=== PATIENT | male | born 1955 | race Caucasian/White ===

== ENCOUNTER 2016-03-27 09:03 | Outpatient (CLI) | payer OTHER ==
[2015-05-14 15:40] VITALS: BP 143/75
[2016-03-27 09:27] LABS: BASOPHILS % 0.2 (0.0-1.5); EOSINOPHILS % 2.3 % (0.0-6.8); LYMPHOCYTES # 1.5 # k/uL (0.6-4.0); MEAN CORPUSCULAR HEMOGLOBIN 32.2 pg (28.0-34.0); MONOCYTES # 0.5 # k/uL (0.0-0.9); MONOCYTES % 5.5 % (0.0-11.0); NEUTROPHILS # 6.6 # k/uL (1.4-7.7)
[2016-03-27 09:42] LABS: eGFR (African) > 60; eGFR (Non-African) > 60
== END 2016-03-27 09:04 ==
LOC: LAB 09:03
PROVIDERS: ATTEND Family Medicine
DX: R61 Generalized hyperhidrosis (principal); E11.9 Type 2 diabetes mellitus without complications; Z00.00 Encounter for general adult medical examination without abnormal findings
CPT/HCPCS: 36415; 80053; 80061; 82043; 83036; 85025

== ENCOUNTER 2016-07-31 08:40 | Outpatient (CLI) | payer OTHER ==
[2015-05-14 15:40] VITALS: BP 143/75
[2016-07-31 08:57] LABS: BASOPHILS % 0.5 (0.0-1.5); EOSINOPHILS % 4.1 % (0.0-6.8); MEAN CORPUSCULAR HEMOGLOBIN 32.7 pg (28.0-34.0); MEAN CORPUSCULAR VOLUME 95.7 fl (80.0-100.0); MONOCYTES % 7.1 % (0.0-11.0); NEUTROPHILS # 3.5 # k/uL (1.4-7.7)
[2016-07-31 09:17] LABS: eGFR (African) > 60; eGFR (Non-African) > 60
== END 2016-07-31 08:42 ==
LOC: LAB 08:40
PROVIDERS: ATTEND Family Medicine
DX: E11.9 Type 2 diabetes mellitus without complications (principal); R61 Generalized hyperhidrosis
CPT/HCPCS: 36415; 80048; 83036; 85025

== ENCOUNTER 2016-12-24 09:38 | Outpatient (CLI) | payer OTHER ==
[2015-05-14 15:40] VITALS: BP 143/75
[2016-12-24 09:52] LABS: BASOPHILS % 0.7 (0.0-1.5); EOSINOPHILS % 3.7 % (0.0-6.8); MEAN CORPUSCULAR VOLUME 93.6 fl (80.0-100.0); MONOCYTES % 7.9 % (0.0-11.0); NEUTROPHILS # 4.5 # k/uL (1.4-7.7)
[2016-12-24 10:36] LABS: eGFR (African) > 60; eGFR (Non-African) > 60
--- NOTE | 2016-12-24 11:56 | Diagnostic Imaging Report ---
FAMILIA ABBOTT [facility] [address] [facility].[address] [address] Report Submission Date: Dec 24, 2016 10:52:40 AM CDT Patient Study Name: MERT CARRERA Date: Dec 24, 2016 9:50:30 AM CDT Modality Type: CR Gender: M Description: ABDOMEN : 55 Institution: [facility] Physician: FAMILIA ABBOTT Examination: Obstruction series History: Abdominal discomfort Findings: 3 views obtained of the abdomen. No abnormal dilation of the large or small bowel. Air and stool throughout the large bowel. No suspicious calcification projecting over the renal fossa or the lower pelvic region. Pelvic phleboliths. Osseous structures are appropriate for age. Impression: No obstruction. No suspicious calcifications by plain film sensitivity. Electronically signed on Dec 24, 2016 10:52:40 AM CDT by: Baldomero MADRIGAL
--- NOTE | 2016-12-24 13:35 | Diagnostic Imaging Report ---
FAMILIA ABBOTT [facility] [address] [facility].[address] [address] Report Submission Date: Dec 24, 2016 12:45:44 PM CDT Patient Study Name: MERT CARRERA Date: Dec 24, 2016 11:56:28 AM CDT Modality Type: CT\SR Gender: M Description: CT ABD & PELVIS W/ CON : 55 Institution: [facility] Physician: FAMILIA ABBOTT Examination: CT Abdomen/pelvis History: Generalized abdominal discomfort Comparison exams: Plain film abdomen series dated 24 December 2016 Technique: CT Abdomen/pelvis with IV protocol. Findings: Liver demonstrates diffuse low attenuation. No central lesion. Spleen , pancreas, kidneys and gallbladder are without gross irregularity. No abnormal enhancement. Mild adrenal hyperplasia. No gallstone. 2 mm mid left renal calcification. Few cortical cysts. No abnormal ureteric dilation in their course through the abdomen and pelvis. Bladder margin within normal limits. Abdominal aorta demonstrates mild atherosclerotic disease. No aneurysmal dilation. Cardiac silhouette is not enlarged. No pericardial effusion. Few mildly prominent loops of small bowel with thickened mucosa. Few scattered air-fluid levels. Stool within the large bowel limiting sensitivity. No mesenteric inflammatory changes or free fluid. Appendix identified and is without inflammatory changes. Osseous structures demonstrate degenerative changes. Lung bases demonstrate parenchymal scarring. No effusion. Impression: Mildly prominent loops of small bowel with air-fluid levels suggesting gastroenteritis. No obstruction. No abdominal mass or acute inflammatory process. No gallstone. Left nephrolithiasis. No abnormal ureteric dilation. Electronically signed on Dec 24, 2016 12:45:44 PM CDT by: Baldomero MADRIGAL
== END 2016-12-24 09:40 ==
LOC: RAD 09:38
PROVIDERS: ATTEND Family Medicine
DX: R10.84 Generalized abdominal pain (principal)
CPT/HCPCS: 36415; 74000; 74177; 80053; 83036; 83690; 85025; Q9966; A9698

== ENCOUNTER 2017-08-27 08:41 | Outpatient (CLI) | payer OTHER ==
[2015-05-14 15:40] VITALS: BP 143/75
[2017-08-27 09:23] LABS: eGFR (African) > 60; eGFR (Non-African) > 60
== END 2017-08-27 08:42 ==
LOC: LAB 08:41
PROVIDERS: ATTEND Family Medicine
DX: E11.9 Type 2 diabetes mellitus without complications (principal)
CPT/HCPCS: 36415; 80053; 80061; 83036

== ENCOUNTER 2017-12-04 13:57 | Outpatient (CLI) | payer OTHER ==
[2015-05-14 15:40] VITALS: BP 143/75
== END 2017-12-04 14:00 ==
LOC: LAB 13:57
PROVIDERS: ATTEND Family Medicine
DX: E11.9 Type 2 diabetes mellitus without complications (principal)
CPT/HCPCS: 36415; 83036

== ENCOUNTER 2017-12-09 10:26 | Outpatient (CLI) | payer OTHER ==
[2015-05-14 15:40] VITALS: BP 143/75
--- NOTE | 2017-12-09 12:03 | Diagnostic Imaging Report ---
BERONICA COATES [facility] [address] [address] Report Submission Date: Dec 09, 2017 10:54:01 AM CDT Patient Study Name: MERT CARRERA Date: Dec 09, 2017 10:29:42 AM CDT Modality Type: DX Gender: M Description: LOWER EXTREMITY : 55 Institution: [facility] Physician: BERONICA COATES Left knee History: Pain AP, lateral and sunrise views of the left knee demonstrate no osseous abnormality. There is no joint effusion. There are no significant degenerative findings. Impression: No osseous abnormality. Electronically signed on Dec 09, 2017 10:54:01 AM CDT by: Sarah MADRIGAL
== END 2017-12-09 10:28 ==
LOC: RAD 10:26
PROVIDERS: ATTEND Physician Assistant
DX: M25.562 Pain in left knee (principal)
CPT/HCPCS: 73562

== ENCOUNTER 2017-12-20 19:12 | Emergency (ER) | payer OTHER ==
[2017-12-20 19:38] VITALS: BP 133/64
--- NOTE | 2017-12-20 19:58 | ED Physician Documentation ---
General Adult - HISTORIAN Historian: patient - HPI Stated Complaint: laceration lt hand Chief Complaint: Laceration/Recheck/Suture Additional Information: Patient presents to ED after cutting his left hand with a knife while trying to cut frozen meat. He states it is a deep cut and it bleed profusely at home. He was able to put a compression bandage on the wound and bleeding is controlled. While in the ED the compression bandage was removed with arterial spurting evident. Compression bandage was placed and once again bleeding was controlled. Patient is able to move all fingers and thumb on the left hand. Capillary re fill is good on all fingers. Discussion with patient on the benefits of the wound being evaluated by a surgeon to visualize possible cut tendons and tie off arterial bleeding. Patient is willing to go to [facility], however, refused ambulance transfer. He will have is transport him by private vehicle. Onset: hours (1) Timing: still present Severity: moderate, severe - ROS CONST: no problems EYES/ENT: none CVS/RESP: none GI/: none MS/SKIN/LYMPH: none NEURO/PSYCH: denies: headache - PAST HX Past History: none Other History: none Surgeries/Procedures: other (hernia repair) Immunizations: tetanus Allergies/Adverse Reactions: Allergies Allergy/AdvReac Type Severity Reaction Status Date / Time No Known Drug Allergies Allergy Verified 12/20/17 19:50 - SOCIAL HX Smoking History: cigarettes, greater than 1 pack/day Alcohol Use: none Drug Use: none - FAMILY HX Family History: No - VITAL SIGNS Vital Signs: Vital Signs Temp Pulse Resp BP Pulse Ox 98.4 F 86 16 133/64 97 12/20/17 19:13 12/20/17 19:13 12/20/17 19:13 12/20/17 19:13 12/20/17 19:13 - REVIEWED ASSESSMENTS Nursing Assessment Reviewed: Yes Vitals Reviewed: Yes Progress - Results/Orders Results/Orders: [address] Walter, orthopedic surgeon. He will see patient in the ED at [facility]. Patient has refused ambulance transport, his with drive him there. General Adult Physical Exam - PHYSICAL EXAM GENERAL APPEARANCE: no distress EENT: ERICA NECK: normal inspection RESPIRATORY: no resp distress, breath sounds normal CVS: reg rate & rhythm, heart sounds normal ABDOMEN: soft BACK: No: no CVA tenderness SKIN: warm/dry, other (laceration to left hand palm with arterial spurting ) EXTREMITIES: no edema NEURO: oriented X3 Discharge Clincal Impression: Laceration Referrals: Esha Dominguez MD [Primary Care Provider] - 2 Days Condition: Stable Disposition: 02 XFER SHT-TRM HOSP Decision to Admit: [id number] Date of Decison to Admit: 12/20/17 Decision Time: 20:03
== END 2017-12-20 20:20 | disposition short-term general hospital (02) ==
LOC: ED 19:12
DX: S61.412A Laceration without foreign body of left hand, initial encounter (principal); W26.8XXA Contact with other sharp object(s), not elsewhere classified, initial encounter; Y92.010 Kitchen of single-family (private) house as the place of occurrence of the external cause; Y93.G1 Activity, food preparation and clean up; Y99.9 Unspecified external cause status
CPT/HCPCS: 99283

== ENCOUNTER 2018-07-17 14:40 | Emergency (ER) | payer OTHER ==
[2018-07-17 15:01] VITALS: BP 132/87
--- NOTE | 2018-07-17 15:14 | ED Physician Documentation ---
General Adult - HISTORIAN Historian: patient - HPI Stated Complaint: laceration Chief Complaint: Suture Removal Onset: minutes Severity: moderate Further Comments: yes (63 year old male patient presents with laceration to right forearm. Cut on a piece of tin. Last tetnus 07/09/2018 - with cut to left leg. Patient reports he has been cleaning the wound twice a day with hydrogen peroxide.) - ROS CONST: no problems EYES/ENT: none CVS/RESP: none GI/: none MS/SKIN/LYMPH: none NEURO/PSYCH: denies: headache - PAST HX Past History: denies: none Other History: diabetes Type 2 Immunizations: tetanus (07/09/18) Allergies/Adverse Reactions: Allergies Allergy/AdvReac Type Severity Reaction Status Date / Time No Known Drug Allergies Allergy Verified 07/17/18 15:45 - SOCIAL HX Smoking History: cigarettes - FAMILY HX Family History: No - VITAL SIGNS Vital Signs: Vital Signs Temp Pulse Resp BP Pulse Ox 97.8 F 86 16 132/87 98 07/17/18 14:42 07/17/18 14:42 07/17/18 14:42 07/17/18 14:42 07/17/18 14:42 - REVIEWED ASSESSMENTS Nursing Assessment Reviewed: Yes Vitals Reviewed: Yes Procedures Wound Location: upper extremity (left forearm) Wound's Depth, Shape: flap Wound Explored: clean Irrigated w/ Saline (ccs): 400 Anesthesia: Lidocaine w/ Epi (with neut) Suture Size/Type: 5:0 Number of Sutures: 8 Layer Closure?: No Progress: Wound edges well approximated. Patient tolerated procedure well; reviewed discharge instructions - verbalized understanding. Progress - Progress Progress: non-viable black eschar removed from left teixeira wound. Instructed patient to stop using hydrogen peroxide on wound - verbalized understanding. ED Results Lab/Radiology - Orders Orders: ED Orders Category Date Time Status Lidocaine 1%/Epinephrine [Xylocaine 1%-EPI 1:100,000] Med 07/17/18 15:11 Discontinued 5 ml IJ NOW ONE Sodium Bicarbonate [Neut] Med 07/17/18 15:11 Discontinued 2.4 meq INJ NOW ONE General Adult Physical Exam - PHYSICAL EXAM GENERAL APPEARANCE: mild distress EENT: eye inspection normal, ERICA RESPIRATORY: no resp distress, chest non-tender, breath sounds normal CVS: reg rate & rhythm, heart sounds normal, equal pulses, no murmur, no gallop, PMI nml, no JVD, no friction rub, 24 ABDOMEN: soft, no organomegaly, normal bowel sounds, no abdominal bruit, no distension BACK: normal inspection, no CVA tenderness SKIN: warm/dry, normal color, other (left forearm - 3.5 cm flap laceration; right lower leg with 1.5 cm area of dark black eschar) NEURO: oriented X3, motor nml, sensation nml, mood/affect nml Discharge Clincal Impression: wound left teixeira Forearm laceration Qualifiers: Encounter type: initial encounter Laterality: left Qualified Code(s): S51.812A - Laceration without foreign body of left forearm, initial encounter Referrals: Esha Dominguez MD [Primary Care Provider] - 2 Days Additional Instructions: Keep the wound clean and dry until it has healed. You can wash or shower after 24 hours. Do not soak the wound in water and make sure it is dry afterwards (gently pat the area dry with a clean towel). Do not get into a swimming pool, hot tub, lugo or river until your stitches are removed. To remove your dressing, gently pull it off. If needed, you can dampen it with water then gently pull it off. Clean the laceration twice a day with hibiclens and rinse with water clean away any scabbed area Apply thin coat of antibiotic ointment after cleaning the wound. Cover with non-adherent bandage if able. If you have pain, take simple pain relief medication such as Tylenol or ibuprofen. If bandages or dressings get wet, they will need to be changed. Call your doctor for any signs of symptom of infection redness, drainage, pain. Have your stitches removed at your doctors office in 10 days. Discharged with bactroban ointment apply a thin coat twice a day. Condition: Stable Disposition: 01 HOME, SELF-CARE Decision to Admit: NO Decision Time: 15:43
[2018-07-17] MEDS: LIDOCAINE HCL 1%/EPI. (1:100,000) MDV 20ML VIAL IJ ONE (15:20)
[2018-07-17] MEDS: SODIUM BICARBONATE 2.4 MEQ/5 ML VIAL INJ ONE (15:20)
== END 2018-07-17 15:55 | disposition home or self-care (01) ==
LOC: ED 14:40
DX: S51.811D Laceration without foreign body of right forearm, subsequent encounter (principal); W26.8XXD Contact with other sharp object(s), not elsewhere classified, subsequent encounter
CPT/HCPCS: 99282

== ENCOUNTER 2018-11-12 08:19 | Outpatient (CLI) | payer OTHER ==
[2018-11-12 08:49] LABS: A1C 6.9 % (<5.7)
[2018-11-12 09:11] LABS: eGFR (Non-African) > 60
[2018-11-12 09:12] LABS: HDL 50 mg/dL (>40)
== END 2018-11-12 08:21 ==
LOC: LAB 08:19
PROVIDERS: ATTEND Family Medicine
DX: Z12.5 Encounter for screening for malignant neoplasm of prostate (principal); E11.9 Type 2 diabetes mellitus without complications
CPT/HCPCS: 36415; 80053; 80061; 82043; 83036; 84153

== ENCOUNTER 2018-11-16 10:15 | Outpatient (CLI) | payer OTHER ==
--- NOTE | 2018-11-16 11:50 | Diagnostic Imaging Report ---
FAMILIA ABBOTT [facility] [address] [address] Report Submission Date: Nov 16, 2018 10:51:20 AM CDT Patient Study Name: MERT CARRERA Date: Nov 16, 2018 10:19:16 AM CDT Modality Type: DX Gender: M Description: BILAT KNEES 1 OR 2 VIEWS : 55 Institution: [facility] Physician: FAMILIA ABBOTT Examination: Plain film knee History: LT KNEE PAIN X3 MONTHS Findings: 2 standing views of the left knee demonstrates degenerative spurring. No fracture. No dislocation. No joint effusion. No soft tissue irregularity. Impression: No acute osseous abnormality Electronically signed on Nov 16, 2018 10:51:20 AM CDT by: Baldomero MADRIGAL
--- NOTE | 2018-11-16 11:51 | Diagnostic Imaging Report ---
FAMILIA ABBOTT [facility] [address] [address] Report Submission Date: Nov 16, 2018 10:51:20 AM CDT Patient Study Name: MERT CARRERA Date: Nov 16, 2018 10:19:16 AM CDT Modality Type: DX Gender: M Description: BILAT KNEES 1 OR 2 VIEWS : 55 Institution: [facility] Physician: FAMILIA ABBOTT Examination: Plain film knee History: LT KNEE PAIN X3 MONTHS Findings: 2 standing views of the left knee demonstrates degenerative spurring. No fracture. No dislocation. No joint effusion. No soft tissue irregularity. Impression: No acute osseous abnormality Electronically signed on Nov 16, 2018 10:51:20 AM CDT by: Baldomero MADRIGAL
== END 2018-11-16 10:17 ==
LOC: LAB 10:15
PROVIDERS: ATTEND Family Medicine
DX: D69.9 Hemorrhagic condition, unspecified (principal); R41.3 Other amnesia; M25.562 Pain in left knee; G89.29 Other chronic pain
CPT/HCPCS: 36415; 73560; 84443; 85027

== ENCOUNTER 2019-01-13 11:15 | Emergency (ER) | payer OTHER ==
[2019-01-13 11:31] VITALS: BP 128/71
--- NOTE | 2019-01-13 11:37 | ED Physician Documentation ---
Multiple Trauma - HISTORIAN Historian: patient - HPI Stated Complaint: Fall Chief Complaint: Multiple Trauma Additional Information: Patient presents to ED via EMS after falling approximately 5 feet off of a ladder, landing in the yard. Patient reports landing on his left side with his arm against his chest. He complains of 10/10, sharp stabbing pain to left chest and left upper quadrant. He arrive on a back board but denies any neck and back pain. He denies hitting his head and remembers the entire fall. He is not on blood thinners. Onset: just prior to arrival Where: home Location of Pain/Injury: chest (left lateral chest ), abdomen (LUQ) Injury to Right Extremity: none Injury to Left Extremity: none Severity: severe Further Comments: no - ROS CONST: no problems NEURO: denies: dizziness EYES/ENT: none MS/SKIN/LYMPH: denies: weakness, numbness, neck pain, back pain, ankle swelling CVS/RESP: chest pain, shortness of breath GI/: denies: nausea, vomiting blood - PAST HX Past History: diabetes Type 2 Allergies/Adverse Reactions: Allergies Allergy/AdvReac Type Severity Reaction Status Date / Time No Known Drug Allergies Allergy Verified 07/17/18 15:45 Home Medications: Ambulatory Orders Medication Instructions Recorded HYDROcodone /APAP 5/325 [[place] 1 each PO Q4 PRN #15 tablet 01/13/19 5/325] Orphenadrine (Nf) [Norflex (Nf)] 100 mg PO Q12 PRN #30 tablet.er 01/13/19 - SOCIAL HX Smoking History: cigarettes Alcohol Use: none Drug Use: none - FAMILY HX Family History: none - VITAL SIGNS Vital Signs: Vital Signs Temp Pulse Resp BP Pulse Ox 87 16 128/71 93 01/13/19 13:54 01/13/19 13:54 01/13/19 13:54 01/13/19 13:54 - REVIEWED ASSESSMENTS Nursing Assessment Reviewed: Yes Vitals Reviewed: Yes ED Results Lab/Radiology - Lab Results Lab Results: Lab Results 01/13/19 11:40 Sodium 137 mmol/L mmol/L (137-145) Potassium 4.5 mmol/L mmol/L (3.5-5.1) Chloride 98 mmol/L mmol/L (98-107) Carbon Dioxide 28 mmol/L mmol/L (22-30) Anion Gap 15.5 BUN 10 mg/dL mg/dL (9-20) Creatinine 0.41 mg/dL L mg/dL (0.66-1.25) Estimated Creat Clear 248 Est GFR ( Amer) > 60 (60 - ) Est GFR (Non-Af Amer) > 60 (60 - ) Glucose 378 mg/dL H mg/dL (74-106) Calcium 9.3 mg/dL mg/dL (8.4-10.2) - Radiology Radiology Impressions: Report Submission Date: Jan 13, 2019 1:22:08 PM BUSINESS SUPPORT LIAISON Patient Study Name: MERT CARRERA Date: Jan 13, 2019 12:38:06 PM BUSINESS SUPPORT LIAISON Modality Type: CT\SR Gender: M Description: CT BRAIN W/O CONTRAST : 55 Institution: [facility] Physician: LINA REYES Examination: CT head without contrast History: Fall Comparison exam: None available Technique: Noncontrast head CT protocol. Findings: Ventricles and sulci are consistent for patient age. Cerebrocerebellar parenchyma demonstrates periventricular low attenuation consistent with small vessel disease. No evidence for parenchymal hemorrhage. No evidence for mass or mass effect. No midline shift. No extra axial fluid collections. Partial visualization of the paranasal sinuses, mastoid air cells, orbits, skull and sc alp without gross irregularity. Impression: Age related changes. No acute parenchymal process. No hemorrhage. Electronically signed on Jan 13, 2019 1:22:08 PM BUSINESS SUPPORT LIAISON by: Baldomero Mahmood Report Submission Date: Jan 13, 2019 1:28:37 PM BUSINESS SUPPORT LIAISON Patient Study Name: MERT CARRERA Date: Jan 13, 2019 12:42:00 PM BUSINESS SUPPORT LIAISON Modality Type: CT\SR Gender: M Description: CT CHEST/ABD/PEL W : 55 Institution: [facility] Physician: LINA REYES Exam: CT chest abdomen and pelvis with contrast. History: Left-sided chest pain after fall. Axial images through the chest abdomen and pelvis after IV infusion of 90 cc Omnipaque 300 is submitted along with sagittal and coronal reformatted images. The examination is compared to a study of the abdomen performed on December 24, 2016. Dependent atelectasis in infiltrates in the posterior lung summers bilaterally are noted. No pleural effusions are seen. No andrea consolidation is noted. The thoracic aorta is of normal caliber. The mainstem pulmonary artery is also normal in caliber. No significant mediastinal or axillary adenopathy is noted. Mild degenerate changes in the thoracic spine are noted. The no free intraperitoneal air is identified. The gallbladder is distended without stones. The liver, spleen and pancreas are normal attenuation and enhancement. The adrenal glands are normal configuration. The abdominal aorta is of normal caliber. No periaortic lymphadenopathy is noted. Both kidneys are normal attenuation and enhancement. No hydronephrosis is identified. The urinary bladder is markedly distended. The visualized appendix is of normal configuration. The small bowel is of normal caliber. Air and stool seen throughout the large intestine. No in flammatory changes in the mesentery are noted. Scattered diverticula in the descending colon and sigmoid colon are noted. Mild degenerate changes in the lumbar spine is noted. Impression: Dependent atelectasis and infiltrates in the posterior lung summers bilaterally are noted. No andrea consolidation or effusion is identified. No hydronephrosis. The appendix is of normal configuration. Descending colon and sigmoid diverticulosis. Nonspecific bowel gas pattern. No inflammatory changes in the mesentery or ascites is identified. Electronically signed on Jan 13, 2019 1:28:37 PM BUSINESS SUPPORT LIAISON by: Cole Butler - Orders Orders: ED Orders Category Date Time Status Incentive Spirometer 1T Care 01/13/19 13:[address] IV Lock 1T Care 01/13/19 11:[address] ABD & PELVIS W/ CON Stat Exams 01/13/[address] BRAIN W/O CONTRAST Stat Exams 01/13/[address] CHEST W/ CONTRAST Stat Exams 01/13/19 Ordered BMP [BMP] Routine Lab 01/13/19 11:40 Completed 0.9 % Sodium Chloride [Normal Saline] 1,000 ml Med 01/13/19 11:28 Discontinued IV Q1H HYDROcodone /APAP 5/325 [[place] 5/325] Med 01/13/19 13:37 Discontinued 2 each PO NOW ONE HYDROmorphone HCL/PF [Dilaudid] Med 01/13/19 11:29 Discontinued 1 mg IVP NOW ONE EKG WITH COMPARISON Stat Ther 01/13/19 Stop Req Multiple Trauma Physical Exam - Physical Exam General Appearance: no acute distress, alert, backboard BROOM MAN, backboard in ED. No: c-collar BROOM MAN Head: non-tender, no swelling, no obvious injury Neck: non-tender, painless ROM, trachea midline Eyes: ERICA, EOMI ENT: nml external inspection, no dental injury Resp/CVS: no resp. distress, heart sounds nml, splinting, decreased breath sounds (bilaterally ), other (left lateral chest wall tenderness ) Abdomen: soft, normal bowel sounds, tenderness (LUQ) Neuro/Psych: oriented x3, sensation nml, mood/affect nml, sales service manager nml Skin: color nml, no rash Back: normal inspection Extremities: atraumatic, pelvis stable, hips non-tender Joint: joints nml - Nexus Criteria Nexus Criteria: Nexus criteria neg - Mel Coma Score Eyes Open: Spontaneous Speech: Oriented Motor: Obeys Commands Discharge Clincal Impression: Fall from ladder Qualifiers: Encounter type: initial encounter Qualified Code(s): W11.XXXA - Fall on and from ladder, initial encounter Contusion of rib on left side Qualifiers: Encounter type: initial encounter Qualified Code(s): S20.212A - Contusion of left front wall of thorax, initial encounter Prescriptions: HYDROcodone /APAP 5/325 [[place] 5/325] 1 each PO Q4 PRN #15 tablet PRN Reason: rib pain Orphenadrine (Nf) [Norflex (Nf)] 100 mg PO Q12 PRN #30 tablet.er PRN Reason: muscle pain/spasm Referrals: Esha Dominguez MD [Primary Care Provider] - 2 Days Additional Instructions: 1. Ibuprofen 600mg every 6 hours as needed for pain 2. [place] every 4 hours as needed for break through pain 3. Norflex every 12 hours as needed for muscle spasm 4. Ice/Heat to affected areas as needed for comfort 5. Incentive spirometer x 10 times every hour you are awake 6. Follow up with PCP within 3 days 7. Return to ER for new or worsening symptoms Condition: Stable Disposition: 01 HOME, SELF-CARE Decision to Admit: NO Date of Decison to Admit: 01/13/19 Decision Time: 13:42
[2019-01-13] MEDS: 0.9 % SODIUM CHLORIDE 1,000 ML IV ONE (11:41)
[2019-01-13] MEDS: HYDROmorphone HCL/PF 1 MG/ML VIAL IVP ONE (11:50)
[2019-01-13 12:09] LABS: eGFR (Non-African) > 60
--- NOTE | 2019-01-13 13:26 | Diagnostic Imaging Report ---
PATIENT MR#: [id number] PATIENT PATIENT NAME: MERT CARRERA DATE OF : 1955 REFERRING PHYSICIAN: Jennifer Jamison EXAM DATE: 01/13/2019 ACCESSION NUMBER: [id number] EXAM DESCRIPTION: CT BRAIN W/O CONTRAST Examination: CT head without contrast History: Fall Comparison exam: None available Technique: Noncontrast head CT protocol. Findings: Ventricles and sulci are consistent for patient age. Cerebrocerebellar parenchyma demonstra celina periventricular low attenuation consistent with small vessel disease. No evidence for parenchymal hemorrhage. No evid ence for mass or mass effect. No midline shift. No extra axial fluid collections. Partial visualization of the paranas al sinuses, mastoid air cells, orbits, skull and scalp without gross irregularity. Impression: Age related changes. No acute parenchymal process. No hemorrhage. Read by: Dr. Baldomero Mahmood Transcribed by: Transcribed Date: Electronically signed by: Dr. Baldomero Mahmood Date signed: 01/13/2019 1:25:25 PM
--- NOTE | 2019-01-13 13:32 | Diagnostic Imaging Report ---
PATIENT MR#: [id number] PATIENT PATIENT NAME: MERT CARRERA DATE OF : 1955 REFERRING PHYSICIAN: Jennifer Jamison EXAM DATE: 01/13/2019 ACCESSION NUMBER: [id number] EXAM DESCRIPTION: CT CHEST/ABD/PEL W Exam: CT chest abdomen and pelvis with contrast. History: Left-sided chest pain after fall. Axial images through the chest abdomen and pelvis after IV infusion of 90 cc Omnipaque 300 is submitt ed along with sagittal and coronal reformatted images. The examination is compared to a study of the abdomen perfo rmed on December 24, 2016. Dependent atelectasis in infiltrates in the posterior lung summers bilaterally are noted. No pleural effusions are seen. No andrea consolidation is noted. The thoracic aorta is of normal caliber. The mainstem pulmonary ar toan is also normal in caliber. No significant mediastinal or axillary adenopathy is noted. Mild degenerate changes in the thoracic spine are noted. The no free intraperitoneal air is identified. The gallbladder is distended without stones. The liver, spleen and pancreas are normal attenuation a nd enhancement. The adrenal glands are normal configuration. The abdominal aorta is of normal caliber. No periaorti c lymphadenopathy is noted. Both kidneys are normal attenuation and enhancement. No hydronephrosis is identified. The urinary b ladder is markedly distended. The visualized appendix is of normal configuration. The small bowel is of normal caliber. Air and s tool seen throughout the large intestine. No inflammatory changes in the mesentery are noted. Scattered diver ticula in the descending colon and sigmoid colon are noted. Mild degenerate changes in the lumbar spine is noted. Impression: Dependent atelectasis and infiltrates in the posterior lung summers bilaterally are noted. No andrea consolidation or effusion is identified. No hydronephrosis. The appendix is of normal configuration. Descending colon and sigmoid diverticulosis. Nonspecific bowel gas pattern. No inflammatory changes in the mesentery or ascites is identified. Read by: Dr. Cole Dunlap Transcribed by: Transcribed Date: Electronically signed by: Dr. Cole Dunlap Date signed: 01/13/2019 1:31:25 PM
[2019-01-13] MEDS: HYDROcodone /APAP 5/325 1 EACH TABLET PO ONE (13:40)
--- NOTE | 2019-01-14 09:41 | Diagnostic Imaging Report ---
[facility] [id number] [facility] [id number] Patient Name: MERT CARRERA Referring Physician: LINA ESQUIVEL Date of : 1955 Gender: M Date of Service: 01/13/2019 Exam Requested: CT CHEST/ABD/PEL W Exam: CT chest abdomen and pelvis with contrast. History: Left-sided chest pain after fall. Axial images through the chest abdomen and pelvis after IV infusion of 90 cc Omnipaque 300 is submitted along with sagittal and coronal reformatted images. The examination is compared to a study of the abdomen performed on December 24, 2016. Dependent atelectasis in infiltrates in the posterior lung summers bilaterally are noted. No pleural effusions are seen. No andrea consolidation is noted. The thoracic aorta is of normal caliber. The mainstem pulmonary artery is also normal in caliber. No significant mediastinal or axillary adenopathy is noted. Mild degenerate changes in the thoracic spine are noted. The no free intraperitoneal air is identified. The gallbladder is distended without stones. The liver, spleen and pancreas are normal attenuation and enhancement. The adrenal glands are normal configuration. The abdominal aorta is of normal caliber. No periaortic lymphadenopathy is noted. Both kidneys are normal attenuation and enhancement. No hydronephrosis is identified. The urinary bladder is markedly distended. The visualized appendix is of normal configuration. The small bowel is of normal caliber. Air and stool seen throughout the large intestine. No inflammatory changes in the mesentery are noted. Scattered diverticula in the descending colon and sigmoid colon are noted. Mild degenerate changes in the lumbar spine is noted. Impression: Dependent atelectasis and infiltrates in the posterior lung summers bilaterally are noted. No andrea consolidation or effusion is identified. No hydronephrosis. The appendix is of normal configuration. Descending colon and sigmoid diverticulosis. Nonspecific bowel gas pattern. No inflammatory changes in the mesentery or ascites is identified. :3 KAITLIN
== END 2019-01-13 13:54 | disposition home or self-care (01) ==
LOC: ED 11:15
DX: S20.212A Contusion of left front wall of thorax, initial encounter (principal); W11.XXXA Fall on and from ladder, initial encounter
CPT/HCPCS: 70450; 71260; 74177; 80048; 99283; 99284; A9270; J1170; J7030; Q9967